=== PATIENT | male | born 1975 | race Caucasian/White ===

== ENCOUNTER 2018-07-29 17:11 | Emergency (ER) | payer OTHER ==
[~2018-07-29] VITALS: Ht 177.8 cm; Wt 99.8 kg
[2018-07-29 17:17] VITALS: Ht 177.8 cm; Wt 99.8 kg
[2018-07-29 17:43] VITALS: BP 141/99
== END 2018-07-29 17:44 | disposition other institution (70) ==
LOC: ED 17:11
DX: Z02.89 Encounter for other administrative examinations (principal)

== ENCOUNTER 2019-10-06 13:00 | Inpatient (IN) | payer MEDICAID ==
[~2019-10-06] VITALS: Ht 177.8 cm; Wt 95.3 kg
[2019-10-06 13:49] LABS: BASOPHIL % 0.7 % (0-2); PLATELET COUNT 307 x10^3mcL (130-400)
[2019-10-06 13:52] LABS: RED CELL DISTRIBUTION WIDTH 15.3 % (11.5-14.5)
[2019-10-06 13:53] LABS: CALCIUM 9.4 mg/dL (8.5-10.1); CARBON DIOXIDE 34.2 mmol/L (21-32); CHLORIDE SERUM 94 mmol/L (98-107); CREATININE SERUM 0.9 mg/dL (0.7-1.3); GFR1 > 60 mL/min; GLUCOSE SERUM 107 mg/dL (74-106); POTASSIUM SERUM 3.2 mmol/L (3.5-5.1); SODIUM SERUM 134 mmol/L (136-145)
[2019-10-06 13:58] LABS: ALBUMIN 3.4 g/dL (3.4-5.0); ALKALINE PHOSPHATASE 75 U/L (46-116); ALT/SGPT 29 U/L (16-63); AST/SGOT 17 U/L (15-37); BILIRUBIN TOTAL 1.55 mg/dL (0.20-1.00)
[2019-10-06 14:00] LABS: TOTAL PROTEIN, SERUM 8.4 g/dL (6.4-8.2)
[2019-10-06 18:44] LABS: MAGNESIUM 2.1 mg/dL (1.8-2.4); PHOSPHOROUS 2.3 mg/dL (2.5-4.9)
[2019-10-06 18:46] LABS: CHOLESTEROL/HDL RATIO 7.9
[2019-10-06 19:33] VITALS: BP 111/69
[2019-10-06 19:35] VITALS: Ht 177.8 cm; Wt 95.3 kg
[2019-10-06 21:58] VITALS: BP 111/69
[2019-10-07 06:10] VITALS: BP 104/67
[2019-10-07 07:00] LABS: BASOPHIL % 0.2 % (0-2); PLATELET COUNT 308 x10^3mcL (130-400)
[2019-10-07 07:12] LABS: CALCIUM 8.7 mg/dL (8.5-10.1); CARBON DIOXIDE 29.4 mmol/L (21-32); CHLORIDE SERUM 100 mmol/L (98-107); CREATININE SERUM 0.8 mg/dL (0.7-1.3); GFR1 > 60 mL/min; GLUCOSE SERUM 116 mg/dL (74-106); MAGNESIUM 2.2 mg/dL (1.8-2.4); PHOSPHOROUS 2.8 mg/dL (2.5-4.9); POTASSIUM SERUM 3.5 mmol/L (3.5-5.1); SODIUM SERUM 137 mmol/L (136-145)
[2019-10-07 07:40] LABS: RED CELL DISTRIBUTION WIDTH 15.4 % (11.5-14.5)
[2019-10-07 08:48] VITALS: BP 118/81
[2019-10-07 10:10] LABS: microscopic required? NO
[2019-10-07 10:35] LABS: AMPHETAMINE QUAL UR NONE DETECTED (See below)
[2019-10-07 11:02] LABS: urine erythrocyte NEGATIVE (NEGATIVE)
[2019-10-07 13:14] VITALS: BP 106/72
[2019-10-07 17:28] VITALS: BP 99/61
[2019-10-07 20:56] VITALS: BP 103/66
[2019-10-08 05:24] VITALS: BP 117/78
[2019-10-08 06:30] LABS: BASOPHIL % 0.8 % (0-2); PLATELET COUNT 334 x10^3mcL (130-400)
[2019-10-08 06:59] LABS: CALCIUM 8.5 mg/dL (8.5-10.1); CARBON DIOXIDE 31.7 mmol/L (21-32); CHLORIDE SERUM 102 mmol/L (98-107); GFR1 > 60 mL/min; GLUCOSE SERUM 88 mg/dL (74-106); PHOSPHOROUS 3.8 mg/dL (2.5-4.9); POTASSIUM SERUM 3.4 mmol/L (3.5-5.1); SODIUM SERUM 140 mmol/L (136-145)
[2019-10-08 08:01] LABS: RED CELL DISTRIBUTION WIDTH 15.9 % (11.5-14.5)
[2019-10-08 08:50] VITALS: BP 121/77
[2019-10-08 12:27] VITALS: BP 110/79
[2019-10-08 17:14] VITALS: BP 107/74
[2019-10-08 20:28] VITALS: BP 100/69
[2019-10-09 04:34] VITALS: BP 111/69
[2019-10-09 07:30] LABS: BASOPHIL % 0.6 % (0-2); PLATELET COUNT 355 x10^3mcL (130-400)
[2019-10-09 07:32] LABS: CALCIUM 8.7 mg/dL (8.5-10.1); CARBON DIOXIDE 27.8 mmol/L (21-32); CHLORIDE SERUM 105 mmol/L (98-107); CREATININE SERUM 0.7 mg/dL (0.7-1.3); GFR1 > 60 mL/min; GLUCOSE SERUM 99 mg/dL (74-106); MAGNESIUM 2.2 mg/dL (1.8-2.4); PHOSPHOROUS 3.1 mg/dL (2.5-4.9); POTASSIUM SERUM 3.3 mmol/L (3.5-5.1); SODIUM SERUM 141 mmol/L (136-145)
[2019-10-09 07:48] LABS: RED CELL DISTRIBUTION WIDTH 15.7 % (11.5-14.5)
[2019-10-09 08:21] VITALS: BP 117/86
[2019-10-09 12:31] VITALS: BP 110/76
[2019-10-09 16:47] VITALS: BP 141/75
[2019-10-09 21:18] VITALS: BP 101/67
[2019-10-10 05:11] VITALS: BP 116/82
[2019-10-10 08:28] LABS: CALCIUM 9.2 mg/dL (8.5-10.1); CARBON DIOXIDE 29.6 mmol/L (21-32); CHLORIDE SERUM 105 mmol/L (98-107); CREATININE SERUM 0.9 mg/dL (0.7-1.3); GFR1 > 60 mL/min; GLUCOSE SERUM 103 mg/dL (74-106); POTASSIUM SERUM 3.8 mmol/L (3.5-5.1); SODIUM SERUM 142 mmol/L (136-145)
[2019-10-10 08:48] VITALS: BP 120/84
[2019-10-10 09:10] LABS: BASOPHIL % 0.7 % (0-2); PLATELET COUNT 366 x10^3mcL (130-400)
[2019-10-10] MEDS ORDERED: XARELTO10 M1 PO ×2 (09:10)
[2019-10-10 10:01] LABS: RED CELL DISTRIBUTION WIDTH 16.4 % (11.5-14.5)
[2019-10-10 10:50] VITALS: BP 120/84
[2019-10-10 12:28] VITALS: BP 106/72
[2019-10-23] MEDS ORDERED: THERA-M CAPLET1 EACH PO (09:25)
[2019-10-23] MEDS ORDERED: THI100 PO (09:25)
[2019-10-23] MEDS ORDERED: FOL1 PO (09:25)
[2019-10-23] MEDS ORDERED: [UNRECOGNIZED DRUG - OTHER] TOP (14:15)
== END 2019-10-10 13:57 | disposition home or self-care (01) | DRG 134 ==
LOC: ED 13:00 → DU 17:55
PROVIDERS: Internal Medicine; ADMIT Internal Medicine
DX: I26.99 Other pulmonary embolism without acute cor pulmonale (principal); J96.01 Acute respiratory failure with hypoxia; K76.0 Fatty (change of) liver, not elsewhere classified; E83.39 Other disorders of phosphorus metabolism; E87.1 Hypo-osmolality and hyponatremia; E78.5 Hyperlipidemia, unspecified; E87.6 Hypokalemia; F10.10 Alcohol abuse, uncomplicated; F12.10 Cannabis abuse, uncomplicated; Y90.0 Blood alcohol level of less than 20 mg/100 ml; E66.9 Obesity, unspecified; Z59.0 Homelessness; Z79.899 Other long term (current) drug therapy; Z68.32 Body mass index [BMI] 32.0-32.9, adult; Z87.891 Personal history of nicotine dependence
CPT/HCPCS: 36600; 83880; 85378; 94150; G0378; J1644; J1650; J1885; J7030; J7512; J7620; Q0092; Q9967

== ENCOUNTER 2019-10-24 11:10 | Emergency (ER) | payer MEDICAID ==
[~2019-10-24] VITALS: Ht 177.8 cm; Wt 98.9 kg
[~2019-10-24 11:10] MED LIST: FOL1 PO; THERA-M CAPLET1 EACH PO; THI100 PO; XARELTO10 M1 PO; [UNRECOGNIZED DRUG - OTHER] TOP
[2019-10-24 11:15] VITALS: Ht 177.8 cm; Wt 98.9 kg
[2019-10-24 11:58] VITALS: BP 113/77
== END 2019-10-24 11:50 | disposition left against medical advice (07) ==
LOC: ED 11:10
DX: S93.401A Sprain of unspecified ligament of right ankle, initial encounter (principal); F10.229 Alcohol dependence with intoxication, unspecified; R51 Headache; Z88.0 Allergy status to penicillin; X58.XXXA Exposure to other specified factors, initial encounter; Y93.89 Activity, other specified; Y92.89 Other specified places as the place of occurrence of the external cause; Y99.8 Other external cause status

== ENCOUNTER 2019-11-03 10:27 | Emergency (ER) | payer MEDICAID ==
[~2019-11-03] VITALS: Ht 177.8 cm; Wt 102.1 kg
[2019-11-03 10:33] VITALS: Ht 177.8 cm; Wt 102.1 kg
[2019-11-03 12:59] LABS: BASOPHIL % 0.3 % (0-2); PLATELET COUNT 191 x10^3mcL (130-400)
[2019-11-03 13:04] LABS: RED CELL DISTRIBUTION WIDTH 17.5 % (11.5-14.5)
[2019-11-03 13:35] LABS: CALCIUM 9.4 mg/dL (8.5-10.1); CARBON DIOXIDE 31.1 mmol/L (21-32); CHLORIDE SERUM 105 mmol/L (98-107); CREATININE SERUM 0.8 mg/dL (0.7-1.3); GFR1 > 60 mL/min; GLUCOSE SERUM 88 mg/dL (74-106); POTASSIUM SERUM 3.9 mmol/L (3.5-5.1); SODIUM SERUM 141 mmol/L (136-145)
[2019-11-03 13:40] LABS: ALBUMIN 3.9 g/dL (3.4-5.0); ALKALINE PHOSPHATASE 87 U/L (46-116); ALT/SGPT 55 U/L (16-63); AST/SGOT 43 U/L (15-37); BILIRUBIN TOTAL 0.77 mg/dL (0.20-1.00)
[2019-11-03 14:18] VITALS: BP 127/86
== END 2019-11-03 15:25 | disposition home or self-care (01) ==
LOC: ED 10:27
PROVIDERS: Emergency Medicine
DX: R06.00 Dyspnea, unspecified (principal); R07.89 Other chest pain; Z86.711 Personal history of pulmonary embolism; Z88.0 Allergy status to penicillin
CPT/HCPCS: 36415; 83880; 85378; Q0092

== ENCOUNTER 2020-05-21 09:31 | Emergency (ER) | payer SELFPAY ==
[~2020-05-21] VITALS: Ht 177.8 cm; Wt 104.3 kg
[2020-05-21 09:37] VITALS: Ht 177.8 cm; Wt 104.3 kg
[2020-05-21 10:39] LABS: BASOPHIL % 0.3 % (0-2); CALCIUM 8.7 mg/dL (8.5-10.1); CARBON DIOXIDE 16.5 mmol/L (21-32); CHLORIDE SERUM 94 mmol/L (98-107); CREATININE SERUM 1.1 mg/dL (0.7-1.3); GFR1 > 60 mL/min; GLUCOSE SERUM 181 mg/dL (74-106); POTASSIUM SERUM 3.7 mmol/L (3.5-5.1); SODIUM SERUM 135 mmol/L (136-145)
[2020-05-21 10:43] LABS: ALBUMIN 4.1 g/dL (3.4-5.0); ALKALINE PHOSPHATASE 209 U/L (46-116); ALT/SGPT 151 U/L (16-63); AST/SGOT 230 U/L (15-37); BILIRUBIN TOTAL 1.3 mg/dL (0.20-1.00); C REACTIVE PROTEIN 1.3 mg/dL (<=0.9); LACTIC DEHYDROGENASE (LDH) 503 U/L (100-190); TOTAL PROTEIN, SERUM 7.9 g/dL (6.4-8.2)
[2020-05-21 10:49] LABS: PLATELET COUNT 65 x10^3mcL (130-400); RED CELL DISTRIBUTION WIDTH 15.2 % (11.5-14.5)
[2020-05-21 11:48] LABS: UA SPECIFIC GRAVITY >=1.030 (1.005-1.035); microscopic required? YES; urine erythrocyte 3+ (NEGATIVE)
[2020-05-21 14:55] VITALS: BP 125/79
[2020-05-21 15:21] LABS: AMPHETAMINE QUAL UR NONE DETECTED (See below)
== END 2020-05-21 14:55 | disposition short-term general hospital (02) ==
LOC: ED 09:31
PROVIDERS: Specialist
DX: S06.5X0A Traumatic subdural hemorrhage without loss of consciousness, initial encounter (principal); S01.512A Laceration without foreign body of oral cavity, initial encounter; R56.9 Unspecified convulsions; F10.20 Alcohol dependence, uncomplicated; Z88.0 Allergy status to penicillin; W18.39XA Other fall on same level, initial encounter; Y93.01 Activity, walking, marching and hiking; Y92.488 Other paved roadways as the place of occurrence of the external cause; Y99.8 Other external cause status; Y90.9 Presence of alcohol in blood, level not specified
CPT/HCPCS: 36600; 83880; 85378; 87804; G0480; J1165; J2060; J3411; J3475; J3490; Q0092; U0003-CS

== ENCOUNTER 2020-08-18 12:30 | Emergency (ER) | payer SELFPAY ==
[~2020-08-18] VITALS: Ht 177.8 cm; Wt 102.1 kg
[2020-08-18 12:38] VITALS: Ht 177.8 cm; Wt 102.1 kg
[2020-08-18 14:00] LABS: BASOPHIL % 0.4 % (0-2); PLATELET COUNT 72 x10^3mcL (130-400); RED CELL DISTRIBUTION WIDTH 14.4 % (11.5-14.5)
[2020-08-18 14:02] LABS: CALCIUM 9.6 mg/dL (8.5-10.1); CARBON DIOXIDE 27.5 mmol/L (21-32); CHLORIDE SERUM 95 mmol/L (98-107); CREATININE SERUM 1.1 mg/dL (0.7-1.3); GFR1 > 60 mL/min; GLUCOSE SERUM 119 mg/dL (74-106); POTASSIUM SERUM 3.7 mmol/L (3.5-5.1); SODIUM SERUM 132 mmol/L (136-145)
[2020-08-18 14:07] LABS: ALKALINE PHOSPHATASE 98 U/L (46-116); ALT/SGPT 83 U/L (16-63); AST/SGOT 82 U/L (15-37); BILIRUBIN TOTAL 1.42 mg/dL (0.20-1.00); TOTAL PROTEIN, SERUM 8.1 g/dL (6.4-8.2)
[2020-08-18 16:47] VITALS: BP 137/81
== END 2020-08-18 16:47 | disposition home or self-care (01) ==
LOC: ED 12:30
PROVIDERS: Emergency Medicine
DX: G40.909 Epilepsy, unspecified, not intractable, without status epilepticus (principal)
CPT/HCPCS: 82962; G0480; J1953; J7030; Q0092